=== PATIENT | male | born 1945 | race Caucasian/White ===

== ENCOUNTER 2022-07-09 14:52 | Inpatient (IN) | payer OTHER ==
[~2022-07-09] VITALS: Ht 170.2 cm; Wt 90.7 kg
[2022-07-09] MEDS ORDERED: IV NS 0.9% 1,000 ML BAG IV ONE (15:00)
--- NOTE | 2022-07-09 15:10 | NUR ---
BIBA RA60 From Home "Diarrhea x5wks. Visual changes on left eye yesterday". PLACED IN BED, AAOX4, BREATHING EVEN AND UNLABORED SATURATING AT 98%RA.
[2022-07-09] MEDS ORDERED: IV NS 0.9% 250 ML IV ONE (15:25)
[2022-07-09] MEDS ORDERED: IOHEXOL-350 100 ML VIAL IV ONE (15:25)
--- NOTE | 2022-07-09 15:30 | NUR ---
MOVE SHEET SUBMITTED.
--- NOTE | 2022-07-09 15:36 | NUR ---
PATIENT TAKEN TO CT VIA [facility]
[2022-07-09 15:42] LABS: BASOPHILS % (AUTO) 0.2 % (0.0-2.0); EOSINOPHILS % (AUTO) 2.2 % (0.0-6.0); HEMATOCRIT 40 % (39-51); LYMPHOCYTES # (AUTO) 0.7 K/uL (0.8-4.8); LYMPHOCYTES % (AUTO) 12.6 % (20.0-44.0); MEAN CORPUSCULAR HGB CONC 32 g/dl (31.0-36.0); MEAN CORPUSCULAR VOLUME 85 fL (80-96); MONOCYTES # (AUTO) 0.7 K/uL (0.1-1.30); MONOCYTES % (AUTO) 12.8 % (2.0-12.0); NEUTROPHILS # (AUTO) 4.2 K/uL (1.8-8.9); NEUTROPHILS % (AUTO) 72.2 % (43.0-81.0); PLATELET COUNT (AUTO) 220 K/uL (150-450); RED BLOOD CELL COUNT(AUTO) 4.72 MIL/uL (4.5-6.0); WHITE BLOOD COUNT (AUTO) 5.8 K/uL (4.3-11.0)
[2022-07-09 15:54] LABS: CALCIUM, SERUM 9.1 mg/dL (8.5-10.1); CARBON DIOXIDE 22 mmol/L (21-32); CHLORIDE 107 mmol/L (98-107); CREATININE 2.2 mg/dL (0.6-1.3); POTASSIUM 4.5 mmol/L (3.5-5.1); UREA NITROGEN, BLOOD 51 mg/dL (7-18)
[2022-07-09 15:57] LABS: GLUCOSE 50 mg/dL (74-106)
[2022-07-09 15:59] LABS: SODIUM SERUM 139 mmol/L (136-145)
[2022-07-09] MEDS ORDERED: DEXTROSE 50%-WATER 50 ML DISP.SYRIN IVP ONE (16:00)
[2022-07-09 16:03] LABS: ALANINE AMINOTRANSFERASE 29 U/L (12-78); ALBUMIN 2.8 g/dL (3.4-5.0); ALKALINE PHOSPHATASE 62 U/L (46-116); ASPARTATE AMINOTRANSFERASE 29 U/L (15-37); BILIRUBIN,DIRECT 0.2 mg/dL (0.0-0.2); BILIRUBIN,TOTAL 0.5 mg/dL (0.2-1.0); LIPASE 363 U/L (73-393); TOTAL PROTEIN, SERUM 6.8 g/dL (6.4-8.2)
[2022-07-09] MEDS ORDERED: DEXTROSE 50%-WATER 50 ML DISP.SYRIN ONE (16:31)
[2022-07-09] MEDS ORDERED: LISI10TA29 PO (16:58)
[2022-07-09] MEDS ORDERED: GLIP1TAB6 PO (16:58)
[2022-07-09] MEDS ORDERED: MULT-439 PO (16:58)
[2022-07-09] MEDS ORDERED: CHOL200013 PO (16:58)
[2022-07-09] MEDS ORDERED: OMEG-166 PO (16:58)
[2022-07-09] MEDS ORDERED: CARV12.52 PO (16:58)
[2022-07-09] MEDS ORDERED: ROSU20TA32 PO (16:58)
[2022-07-09] MEDS ORDERED: LATA2.5D15 EACHEYE (16:58)
[2022-07-09] MEDS ORDERED: ASPI-1165 PO (16:58)
[2022-07-09] MEDS ORDERED: IV NS 0.9% 1,000 ML IV ONE (17:00)
--- NOTE | 2022-07-09 17:08 | NUR ---
COVID SWAB OBTAINED
--- NOTE | 2022-07-09 17:09 | NUR ---
SOM HIGGINS SISTER [phone]
--- NOTE | 2022-07-09 17:45 | NUR ---
MOVE SHEET SUBMITTED.
--- NOTE | 2022-07-09 19:17 | NUR ---
NASH [facility] REQUESTING CLINICALS FAXED TO [phone]
[2022-07-09] MEDS ORDERED: AZITHROMYCIN 500 MG in IV D5W 250 ML IV ONE (19:30)
[2022-07-09] MEDS ORDERED: CEFTRIAXONE 1GM BAG (ER ONLY) 50 ML IV ONE ×2 (19:30→19:54)
--- NOTE | 2022-07-09 19:52 | NUR ---
IRIS FROM [place] , NEEDS H&P W/ RECENT VITALS FAXED MOST LIKELY GOING TO [facility] DUE TO OPTHAMOLOGY ACCEPTING ME, DR SR
[2022-07-09] MEDS ORDERED: AZITHROMYCIN 500 MG VIAL ONE (19:54)
[2022-07-09 20:32] LABS: BILIRUBIN,URINE NEGATIVE (NEGATIVE); COLOR,URINE YELLOW (YELLOW); LEUKOCYTE ESTERASE ,URINE NEGATIVE (NEGATIVE); NITRITE, URINE NEGATIVE (NEGATIVE); PH,URINE 5.5 (5.0-8.0); PROTEIN,URINE NEGATIVE (NEGATIVE); UGLUCOSE NEGATIVE (NEGATIVE); UROBILINOGEN,URINE 0.2 EU/dL (0.2)
[2022-07-09 20:38] LABS: BACTERIA,URINE None seen /HPF (None Seen); RBC,URINE 21-50 /HPF (0-2); WBC,URINE 0-2 /HPF (0-3)
[2022-07-09] MEDS ORDERED: ASPIRIN 81 MG TAB.CHEW PO ONE (21:00)
[2022-07-09] MEDS ORDERED: ASPIRIN 81 MG TAB.CHEW ONE (21:09)
[2022-07-10] MEDS ORDERED: MORPHINE SULFATE INJ 4 MG/ML DISP.SYRIN ONE ×2 (03:06→06:48)
[2022-07-10] MEDS ORDERED: MORPHINE SULFATE INJ 2 MG/ML DISP.SYRIN IV ONE ×3 (03:30→15:00)
[2022-07-10] MEDS ORDERED: LIDOCAINE 2% JEL UROJET 10 ML MM ONE (07:21)
--- NOTE | 2022-07-10 07:25 | NUR ---
RECEIVED PT FROM FABI[facility] [place] [facility] [place]
--- NOTE | 2022-07-10 07:45 | NUR ---
RECEIVED A CALL FROM [facility] AND SPOKE TO LOUISE ([phone]) AND SAID THAT THEY WILL CALL BACK ONCE BED BECOMES AVAILABLE.
--- NOTE | 2022-07-10 10:26 | NUR ---
[place] [phone] CM From [place]
--- NOTE | 2022-07-10 11:13 | NUR ---
SPOKE WITH [facility] HOT TAR ROOFER HELPER KEM WHO STATED PATIENT IS STILL AWAITING BED AVAILABILITY FOR HOSPITAL TRANSFER
--- NOTE | 2022-07-10 11:30 | NUR ---
SPOKE WITH VERONIKA BROWNLEE AND SAID THAT [facility] HAS NO BEDS AVAILABLE BUT GOT A BED AT [facility]. AWAITING FOR CALL BACK FOR PEER TO PEER.
--- NOTE | 2022-07-10 12:54 | NUR ---
SPOKE WITH KEM BANDA CM. PT GOING TO [facility] ROOM 409-B. # FOR REPORT: [phone] ext. [phone]. AWAITING CALL BACK FOR TRANSPORTATION AUTHORIZATION.
--- NOTE | 2022-07-10 13:40 | NUR ---
ATTEMPTED TO SET UP ALS TRANSPORT FOR PT. NO ALS TRANSPORT AVAILABLE AT THIS TIME PER [facility]. KEM BANDA CM MADE AWARE, SAYS SHE WILL TRY AND ARRANGE IT. AWAITING CALL BACK FOR TRANSPORT INFORMATION FOR PT.
--- NOTE | 2022-07-10 13:58 | NUR ---
RECEIVED CALL BACK FROM KEM REGARDING ALS TRANSPORT. [facility] ALS TRANSPORT WITH ETA: [phone]
[2022-07-10] MEDS ORDERED: MORPHINE SULFATE INJ 2 MG/ML DISP.SYRIN ONE (14:43)
--- NOTE | 2022-07-10 15:09 | NUR ---
[facility] UNABLE TO ACCOMODATE PT DUE TO NOT HAVING A UROLOGIST CABLEWAY OPERATOR. VERONIKA BROWNLEE PROVIDED AUTH. FOR PATIENT TO BE ADMITTED IN [facility]. DR. LOVE ON THE PHONE WITH DR. CARDONA.
--- NOTE | 2022-07-10 15:25 | NUR ---
MOVE SHEET SUBMITTED.
[2022-07-10] MEDS ORDERED: CARVEDILOL 12.5 MG TABLET PO SCH (17:00)
[2022-07-10] MEDS ORDERED: ASPIRIN/ACETAMINOPHEN/CAFFEINE 1 EACH TABLET PO SCH (17:00)
[2022-07-10] MEDS ORDERED: DEXTROSE 50%-WATER 50 ML DISP.SYRIN IV PRN (17:30)
[2022-07-10] MEDS ORDERED: ZOLPIDEM TARTRATE 5 MG TABLET PO PRN (17:30)
[2022-07-10] MEDS ORDERED: *INSULIN REGULAR(HUMULIN R)HUM 100 UNIT/ML VIAL SQ PRN (17:30)
[2022-07-10] MEDS ORDERED: IV 1/2NS 1000 ML 1,000 ML IV PRN (17:30)
[2022-07-10] MEDS ORDERED: BLOOD SUGAR DIAGNOSTIC 1 EACH STRIP VI SCH (17:30)
[2022-07-10] MEDS ORDERED: ACETAMINOPHEN 325 MG TABLET PO PRN (17:30)
[2022-07-10] MEDS ORDERED: INSULIN REGULAR, HUMAN 100 UNIT/ML 3 ML VIAL SQ PRN (17:30)
[2022-07-10] MEDS ORDERED: HYDROCODONE/APAP 5/325MG TABLET ONE (20:27)
[2022-07-10] MEDS ORDERED: ZOLPIDEM TARTRATE 5 MG TABLET ONE (20:37)
[2022-07-10] MEDS: HYDROCODONE/APAP 5/325MG TABLET PO PRN (20:42)
[2022-07-10] MEDS ORDERED: LATANOPROST EYE DROP 0.005% 2.5 ML BOTTLE EACHEYE SCH (22:00)
[2022-07-10] MEDS ORDERED: ATORVASTATIN 40 MG TABLET PO SCH (22:00)
--- NOTE | 2022-07-10 22:53 | NUR ---
XRAY AT BEDSIDE
[2022-07-11] MEDS ORDERED: HYDROCODONE/APAP 5/325MG TABLET ONE (00:44)
--- NOTE | 2022-07-11 01:00 | NUR ---
PT PULLED OUT IV, MADE AWARE
--- NOTE | 2022-07-11 01:00 | NUR ---
PT VERBALIZED THAT HE NO LONGER WISHES TO CONTINUE WITH HOSPITAL STAY. EXPLAINED BENEFITS VS RISK. PT IS ALERT AND ORIENTED, UNDERSTANDS THE RISKS EXPLAINED TO HIM. MADE AWARE
--- NOTE | 2022-07-11 01:01 | NUR ---
Patient does not wish to proceed with medical care recommended by Dr. Ibanez. Patient given information related to possible complications, up to and including , which could occur as a result of leaving the hospital at this time. Patient verbalizes understanding of risks involved due to leaving against medical advice. Patient has signed AMA form.
[2022-07-11] MEDS: HYDROCODONE/APAP 5/325MG TABLET PO PRN (01:07)
[2022-07-11 02:15] VITALS: BP 134/68
[2022-07-11] MEDS ORDERED: MULTIVIT W/MINERALS 1 TAB TABLET PO SCH (09:00)
[2022-07-11] MEDS ORDERED: CHOLECALCIFEROL 1,000 UNIT TABLET (VIT D3) PO SCH (09:00)
--- NOTE | 2022-07-12 15:20 | NUR ---
SW received call from the pt.'s sister, [place] [phone] requesting Hospice resources. SW emailed the following hospice referrals to her at [facility]) [phone] [facility] [phone]- [phone] [facility] Pending Indigent [phone] [facility] [phone] [facility] Office [phone] [phone] [facility] [phone] [phone] [phone] [phone] [phone] FOR FURTHER INFORMATION: [facility] [email or web address] [facility]: [email or web address]
== END 2022-07-11 01:01 | disposition left against medical advice (07) | DRG 196 ==
LOC: ER 14:56 → TRANSITION 07-10 23:55
PROVIDERS: ADMIT Internal Medicine; ATTEND Internal Medicine
DX: J84.10 Pulmonary fibrosis, unspecified (principal); N17.0 Acute kidney failure with tubular necrosis; I13.0 Hypertensive heart and chronic kidney disease with heart failure and stage 1 through stage 4 chronic kidney disease, or unspecified chronic kidney disease; N17.9 Acute kidney failure, unspecified; J98.11 Atelectasis; E86.0 Dehydration; J84.9 Interstitial pulmonary disease, unspecified; Z95.1 Presence of aortocoronary bypass graft; N18.9 Chronic kidney disease, unspecified; H53.8 Other visual disturbances; E78.5 Hyperlipidemia, unspecified; H54.8 Legal blindness, as defined in USA; I25.10 Atherosclerotic heart disease of native coronary artery without angina pectoris; Z95.2 Presence of prosthetic heart valve; Z87.891 Personal history of nicotine dependence; E11.22 Type 2 diabetes mellitus with diabetic chronic kidney disease; I50.9 Heart failure, unspecified; Z79.82 Long term (current) use of aspirin; Z79.84 Long term (current) use of oral hypoglycemic drugs; Z79.899 Other long term (current) drug therapy; I69.398 Other sequelae of cerebral infarction; N20.0 Calculus of kidney; N26.1 Atrophy of kidney (terminal); Z83.3 Family history of diabetes mellitus; N40.0 Benign prostatic hyperplasia without lower urinary tract symptoms; U09.9 Post COVID-19 condition, unspecified
CPT/HCPCS: 36415; 70450-TC; 70496-TC; 70498-TC; 71045-TC; 71250-TC; 80048-TC; 80076-TC; 81001; 82962-TC; 83690-TC; 85025-TC; 86140-TC; 87040-TC; 87081-TC; 93307-TC; C9803; G0378; J0456; J0696; J1815; J2270; J3490; J7030; J7050; J7060; Q9967